=== PATIENT | male | born 1975 | race Caucasian/White ===

== ENCOUNTER 2016-09-01 10:59 | Day surgery (SDC) | payer OTHER ==
[~2016-09-01] VITALS: Ht 188 cm; Wt 144.2 kg
[~2016-09-01 10:59] MED LIST: ADVIL200 MG PO; ATORVASTATIN CA20 MG PO; BACTRIM,SEPT1 TABLET PO; GABAPENTIN300 MG PO; GLIPIZIDE10 M1 PO; GLIPIZIDE10 MG PO; HUMALOG100 UNIT/1 SC; HYDROCODON-ACE1 EAC9 PO; LANTUS 3 M100 UNITS1 SC; LANTUS100 UNIT/1 SC; LANTUS100 UNIT/1 SQ; LISINOPRIL20 MG PO; LYRICA100 MG PO; METFORMIN HCL500 MG PO; METOPROLOL TART25 MG PO; NEXIUM40 MG PO; NOVOLOG100 UNIT/2 SQ; VICODIN 5-3001 EACH PO; ZESTRIL,PRINIVI10 MG PO
[2016-09-01 12:05] LABS: POINT-OF-CARE METER ID UU13113696
[2016-09-01 12:10] LABS: HEMATOCRIT 41.4 % (38.0-50.0); MCHC 31.9 G/DL (30.0-36.0); MCV 94.1 FL (86-99); MEAN PLAT.VOLUME 11.1 uM^3 (9.0-12.4); PLATELET COUNT 223 K/uL (156-360); RBC DIS.WIDTH-CV 12.7 % (11.8-14.6); RBC DIS.WIDTH-SD 44.2 % (39-53); WHITE BLOOD COUNT 10.1 K/uL (4.1-10.2)
[2016-09-01 12:26] LABS: ANION GAP 9 MEQ/L (2-14); CHLORIDE 104 MEQ/L (99-109); POTASSIUM 4.2 MEQ/L (3.7-5.4); SAMPLE HEMOLYSIS CHECK 0; SAMPLE ICTERIC CHECK 0; SAMPLE LIPEMIA CHECK 0; SODIUM 139 MEQ/L (136-147)
[2016-09-01 12:32] LABS: GFR ESTIMATE (CALCULATED) > 59 mL/min/; GLUCOSE 146 mg/dL (70-99); UREA NITROGEN (BUN) 11 mg/dL (9-23)
== END 2016-09-01 18:00 | disposition home or self-care (01) ==
LOC: CATH 10:59
PROVIDERS: Internal Medicine Cardiovascular Disease
DX: I25.10 Atherosclerotic heart disease of native coronary artery without angina pectoris (principal); I10 Essential (primary) hypertension; E11.9 Type 2 diabetes mellitus without complications; E66.01 Morbid (severe) obesity due to excess calories; Z68.41 Body mass index [BMI] 40.0-44.9, adult; R06.09 Other forms of dyspnea; E78.01 Familial hypercholesterolemia; F17.210 Nicotine dependence, cigarettes, uncomplicated; I73.9 Peripheral vascular disease, unspecified; Z79.4 Long term (current) use of insulin; Z82.49 Family history of ischemic heart disease and other diseases of the circulatory system
CPT/HCPCS: 80048; 82948; 85027; C1769; C1887; J1644; J2250; J3010

== ENCOUNTER 2017-11-22 06:31 | Day surgery (SDC) | payer OTHER ==
[~2017-11-22] VITALS: Ht 188 cm; Wt 144.2 kg
[~2017-11-22 06:31] MED LIST changes: -HUMALOG100 UNIT/1 SC; +HUMALOG100 UNIT/2 SC; +HYDROCODON-ACE1 EAC7 PO; -HYDROCODON-ACE1 EAC9 PO; +ISOSORBIDE DINI30 MG PO; +LIPITOR20 MG PO; -METOPROLOL TART25 MG PO; +METOPROLOL TART50 MG PO; +SOMA350 MG PO
[2017-11-22 07:15] VITALS: BP 129/62
[2017-11-22 12:05] VITALS: BP 169/89
[2017-11-22 13:03] VITALS: BP 142/78
== END 2017-11-22 13:30 | disposition home or self-care (01) ==
LOC: SDC 06:31
PROVIDERS: Otolaryngology
DX: J34.2 Deviated nasal septum (principal); J34.3 Hypertrophy of nasal turbinates; J35.2 Hypertrophy of adenoids; I10 Essential (primary) hypertension; E11.9 Type 2 diabetes mellitus without complications; I25.10 Atherosclerotic heart disease of native coronary artery without angina pectoris; G47.30 Sleep apnea, unspecified; K21.9 Gastro-esophageal reflux disease without esophagitis; E66.9 Obesity, unspecified; Z68.41 Body mass index [BMI] 40.0-44.9, adult; E78.00 Pure hypercholesterolemia, unspecified; F17.200 Nicotine dependence, unspecified, uncomplicated; Z79.4 Long term (current) use of insulin
CPT/HCPCS: 82948; J0131; J0330; J1100; J1170; J2405; J2710; J2765; J3010; J7643